=== PATIENT | female | born 1995 | race Caucasian/White ===

== ENCOUNTER 2017-07-06 10:11 | Emergency (ER) | payer SELFPAY ==
[~2017-07-06] VITALS: Ht 152.4 cm; Wt 88.1 kg
[2017-07-06 10:53] VITALS: BP 127/81
[2017-07-06] MEDS ORDERED: ALBUTEROL SULFATE 2.5 MG/3 ML NPPB ONE (11:00)
[2017-07-06 11:04] LABS: RAPID INFLUENZA A Negative (Negative); RAPID INFLUENZA B Negative (Negative)
[2017-07-06] MEDS ORDERED: ALBUTEROL SULFATE 2.5 MG/3 ML ONE (11:09)
[2017-07-06] MEDS ORDERED: HYDROmorphone 2 MG/ML, 1ML ONE ×2 (11:33→12:10)
== END 2017-07-06 11:45 | disposition home or self-care (01) ==
LOC: ED 11:39
DX: J20.8 Acute bronchitis due to other specified organisms (principal); B96.89 Other specified bacterial agents as the cause of diseases classified elsewhere
CPT/HCPCS: 71046; 87400; 94640; 99285; J7613

== ENCOUNTER 2019-05-11 09:20 | Emergency (ER) | payer BC, OTHER ==
[~2019-05-11] VITALS: Ht 152.4 cm; Wt 97.6 kg
--- NOTE | 2019-05-11 09:42 | NUR ---
FIRST CONTACT WITH PT. PT STATES "I CAN'T BREATHE". +CP/SOB. SX STARTED THIS MORNING. "I HAVE A COLD AND I THOUGHT IT WOULD GO AWAY". HX ASTHMA. PT DENIES N/V/D. PT'S AOX4. RESPS EVEN AND UNLABORED. ALL MONITORS IN PLACE. CALL LIGHT WITHIN REACH. NSR RATE 90'S ON HEALTH COORDINATOR AT THIS TIME. AWAITING ORDERES.
[2019-05-11 10:51] VITALS: BP 132/78
--- NOTE | 2019-05-11 10:51 | NUR ---
pt resting in [facility]. pt's aox4. resps even and unlabored.
--- NOTE | 2019-05-11 11:23 | NUR ---
PT RESTING IN GURNEY. PT'S AOX4. RESPS EVEN AND UNLABORED. PT'S BF AT BEDSIDE.
--- NOTE | 2019-05-11 11:42 | NUR ---
Patient given discharge instructions and they have confirmed that they understand the instructions. Patient ambulatory with steady gait.
== END 2019-05-11 11:43 | disposition home or self-care (01) ==
LOC: ED 11:14
DX: J10.1 Influenza due to other identified influenza virus with other respiratory manifestations (principal)
CPT/HCPCS: 71046; 93005; 99283